=== PATIENT | male | born 1970 | race Caucasian/White ===

== ENCOUNTER 2019-10-18 07:34 | Outpatient (CLI) | payer BC ==
--- NOTE | 2019-10-18 09:34 | MRI ---
MRI LEFT SHOULDER WITHOUT COTNRAST: HISTORY: M54.1, radiculopathy. COMPARISON: None. FINDINGS: BICEPS TENDON: Mild extraarticular biceps tendosynovial fluid. There is high-grade intraarticular tendinosis. No s ubcortical cyst formation in the lesser tuberosity to suggest chronic mild tracking. LABRUM: Superior labrum is torn throughout its substance anterior-posterior to the biceps labral expansion. Stable tear posterior labrum and posterior inferior labrum. Traction osteophyte of the posterior inf erior labrum. The tear does involve the posterior inferior glenoid cartilage. ROTATOR CUFF: There is moderate tendinosis of the supraspinatus and infraspinatus tendons. There is hidden interst itial tear of the posterior horn-supraspinatus tendon of the footprint involving 50% of the footprint with some delamination extending to the anterior fibers and infraspinatus tendon. No definite bursa l articular surface extension. The subscapularis has mild tendinosis. BONES: Moderate degenerative disease of the acromioclavicular joint. Type II acromion. Normal glenoid version. IMPRESSION: 1. High-grade intraarticular tendonosis of the biceps tendon near the intratrabecular groove with int act biceps aurelia. 2. Superior labral tear anterior-posterior to the biceps labral expansion extending into the biceps labral anchor with propagation to the posterior superior and posterior inferior labrum as well as the posterior inferior glenoid cartilage with subjacent traction osteophyte. 3. Hidden interstitial tear of the posterior fiber supraspinatus tendon involving the footprint wi th 30-40% of the footprint without definite bursal or articular surface extension. There is propagat ion of interstitial tearing of the infraspinatus tendon also hidden in nature. No significant tendon cyst formation. No full-thickness perforation. 4. Normal muscle signal and bulk. 5. Cortical T2 hyperdense focus of the scapular spine sagittal image 7 without adjacent marrow edema or periosteal elevation. This measures 4-5 mm. This may reflect old osteoid osteoma versus interco rtical hemangioma, or other benign entity. POS: CET
== END 2019-10-18 07:35 | disposition home or self-care (01) ==
LOC: TBSIIMAG 07:34
PROVIDERS: ATTEND Neurological Surgery
DX: M54.10 Radiculopathy, site unspecified (principal); M79.2 Neuralgia and neuritis, unspecified; M25.512 Pain in left shoulder; M75.82 Other shoulder lesions, left shoulder; R93.7 Abnormal findings on diagnostic imaging of other parts of musculoskeletal system

== ENCOUNTER 2020-01-24 06:48 | Day surgery (SDC) | payer BC ==
[2020-01-22 09:45] VITALS: BMI 35.3
[2020-01-24] MEDS ORDERED: Fentanyl 100 MCG/2 ML VIAL ONE ×2 (08:20→12:54)
[2020-01-24] MEDS ORDERED: Lidocaine 1% (PF) 30 ML VIAL ONE (09:14)
[2020-01-24] MEDS ORDERED: tiZANidine HCl 4 MG TAB PO PRN (09:54)
[2020-01-24] MEDS ORDERED: Scopolamine 1.5 mg/72 hour Patch TD PRN (09:54)
[2020-01-24] MEDS ORDERED: Acetaminophen 325 MG TAB PO PRN (09:54)
[2020-01-24] MEDS ORDERED: diphenhydrAMINE 25 MG CAP PO PRN (09:54)
[2020-01-24] MEDS ORDERED: traMADol HCl 50 MG TAB PO PRN (09:54)
[2020-01-24] MEDS ORDERED: Promethazine 25 MG TAB PO PRN (09:54)
[2020-01-24] MEDS ORDERED: Milk Of Magnesia 30 ML UDCUP PO PRN (09:54)
[2020-01-24] MEDS ORDERED: Mag-Al 1200 mg/1200 mg/30 ML UDCUP PO PRN (09:54)
[2020-01-24] MEDS ORDERED: Sodium Chloride 0.9% 1,000 ML IV SCH (10:00)
[2020-01-24] MEDS ORDERED: Fentanyl 100 MCG/2 ML VIAL SLOW IVP PRN ×2 (12:27)
[2020-01-24] MEDS ORDERED: HYDROcodone/Acetaminophen 5/325 mg Tablet ONE (14:04)
[2020-01-24] MEDS ORDERED: CEFAZOLIN 2 GM in Premix Bag 1 BAG IVPB SCH (15:00)
[2020-01-24] MEDS ORDERED: Ondansetron PF 4 MG/2 ML Vial ONE (15:28)
[2020-01-24] MEDS ORDERED: Dexamethasone 20 MG/5 ML VIAL ONE (15:28)
[2020-01-24] MEDS ORDERED: PROPOFOL 200 MG/20 ML VIAL ONE (15:28)
[2020-01-24] MEDS ORDERED: Lidocaine 1% PF 5 ML VIAL ONE (15:28)
--- NOTE | 2020-01-24 16:32 | OP ---
DATE OF PROCEDURE: 01/24/2020 GEOGRAPHIC INFORMATION SYSTEMS ANALYST: Brien Biswas PA-C PREOPERATIVE INDICATION: Treat pain, prevent neurological deterioration. PREOPERATIVE DIAGNOSES: Left carpal tunnel syndrome and left cubital tunnel syndrome. POSTOPERATIVE DIAGNOSES: Left carpal tunnel syndrome and left cubital tunnel syndrome. PROCEDURES PERFORMED: Decompression of left carpal tunnel, decompression with transposition of left ulnar nerve at the elbow. PREOPERATIVE MEDICATION: Ancef 2 g IV. DRAIN NUMBER: Zero. DRAIN TYPE: None. DESCRIPTION OF PROCEDURE: The patient was brought to the operating room. General LMA anesthesia was induced. The left arm was placed on an armboard. The entire arm was sterilely prepped and draped. We made an incision with a 15 blade knife from the distal palmar crease into the palm in line with the web space between the middle and ring finger. We controlled bleeding with bipolar cautery and placed a self-retaining retractor. With a fresh 15 blade knife, we sectioned through the transverse carpal ligament until we entered the carpal tunnel. A [place] 4 dissector was used to protect the neural elements as we continued our ligamentous transection into the palm until we encountered the palmar fat pad. We turned our attention up to the forearm and we sectioned the ligament until there was no further compression on the median nerve. We irrigated with bacitracin irrigation. We closed the wound in vertical mattress sutures with 4-0 Prolene. We turned our attention to the elbow. We made an incision behind the medial epicondyle of the elbow and extended to the forearm and to the arm. We controlled bleeding with bipolar cautery. We dissected sharply down to the cubital tunnel and found the ulnar nerve there. We dissected circumferentially around the nerve proximally and distally until we had enough length for transposition. We sectioned the intermuscular septum of the arm so that there was a smooth transposition to the anterior surface of the elbow and then made a small notch in the flexor group on the medial epicondyle to allow the nerve to return to its normal forearm trajectory. We irrigated with bacitracin irrigation. We tacked the fat down over the nerve to the medial epicondyle to keep the nerve in a transposed position. We made sure the nerve was well decompressed and through an entire range of motion and no stretch on it. We irrigated once again with bacitracin irrigation. We closed elbow incision in anatomic layers. We applied sterile dressings and wrapped the arm in an Eddie bandage. Job ID: [id number]
[2020-01-25] MEDS ORDERED: Tamsulosin HCl 0.4 MG CAP PO SCH (06:00)
== END 2020-01-24 14:27 | disposition home or self-care (01) ==
LOC: SDC 06:48
PROVIDERS: ATTEND Neurological Surgery
PROC: 01N50ZZ Release Median Nerve, Open Approach (ICD-10-PCS; principal; 2020-01-24)
PROC: 01N40ZZ Release Ulnar Nerve, Open Approach (ICD-10-PCS; principal; 2020-01-24)
DX: G56.02 Carpal tunnel syndrome, left upper limb (principal); G56.22 Lesion of ulnar nerve, left upper limb; E66.9 Obesity, unspecified; Z68.35 Body mass index [BMI] 35.0-35.9, adult; Z88.2 Allergy status to sulfonamides; Z88.5 Allergy status to narcotic agent; Z88.6 Allergy status to analgesic agent; Z91.018 Allergy to other foods
CPT/HCPCS: J0690; J1100; J2001; J2405; J2704; J3010

== ENCOUNTER 2021-05-24 11:35 | Outpatient (CLI) | payer BC | END 2021-05-24 11:36 | disposition home or self-care (01) | PROVIDERS: ATTEND Nurse Practitioner Adult Health | DX: R00.2 Palpitations (principal); R53.1 Weakness | CPT/HCPCS: 93017 ==

== ENCOUNTER 2021-06-03 19:00 | Outpatient (CLI) | payer BC | END 2021-06-03 19:01 | disposition home or self-care (01) | LOC: SLEEPLAB 19:00 | PROVIDERS: ATTEND Nurse Practitioner Adult Health | DX: G47.33 Obstructive sleep apnea (adult) (pediatric) (principal); K21.9 Gastro-esophageal reflux disease without esophagitis; R53.83 Other fatigue; R06.83 Snoring; G47.00 Insomnia, unspecified; E66.9 Obesity, unspecified; Z68.36 Body mass index [BMI] 36.0-36.9, adult | CPT/HCPCS: 95806 ==